=== PATIENT | female | born 1970 | race Caucasian/White ===

== ENCOUNTER 2019-09-19 15:17 | Emergency (ER) | payer SELFPAY ==
[~2019-09-19] VITALS: Ht 160 cm; Wt 86.2 kg
[~2019-09-19 15:17] MED LIST: AMIT25; AMIT50 PO; AMOX500 PO; ASPI325EC; BENZ100A PO; CEPH500 PO; CLIN300 PO; CRUTCH3 USE; CYCL10 PO; DULO30; DULO60 PO; GABA100 PO; HYDACE5 PO; HYDACE5325; HYDACE5325 PO; HYDACE7.5 PO; NAPR375 PO; NAPR500 PO; NAPR550 PO; OMEP20ER; OTC COLD MEDS; OXYACE5T PO; PENVK500 PO; PROM25 PO; QUIN200; RANI150 PO; RXCYCL10 PO; RXHYD5325 PO; RXHYDACE PO; RXNAPNA550 PO; RXOXYACE PO; RXPROM25 PO; RXTRAM50 PO; SULTRIDS PO; TERB250 PO; TOPI50 PO; TRAM50 PO; ZOLM5 PO
== END 2019-09-19 18:09 | disposition home or self-care (01) ==
LOC: ER 15:17
DX: M76.32 Iliotibial band syndrome, left leg (principal); F17.210 Nicotine dependence, cigarettes, uncomplicated
CPT/HCPCS: 29505; 73562-LT; 99283-25

== ENCOUNTER 2021-03-20 18:37 | Emergency (ER) | payer OTHER | END 2021-03-20 19:26 | disposition left against medical advice (07) | LOC: ER 18:37 | DX: Z53.21 Procedure and treatment not carried out due to patient leaving prior to being seen by health care provider (principal) ==

== ENCOUNTER 2021-08-18 22:36 | Emergency (ER) | payer OTHER ==
[~2021-08-18] VITALS: Ht 157.5 cm; Wt 83.0 kg
== END 2021-08-19 00:27 | disposition home or self-care (01) ==
LOC: ER 22:36
DX: T20.13XA Burn of first degree of chin, initial encounter (principal); T20.16XA Burn of first degree of forehead and cheek, initial encounter; T20.17XA Burn of first degree of neck, initial encounter; T21.11XA Burn of first degree of chest wall, initial encounter; F17.200 Nicotine dependence, unspecified, uncomplicated; B19.20 Unspecified viral hepatitis C without hepatic coma; F32.A Depression, unspecified; X12.XXXA Contact with other hot fluids, initial encounter; Y92.9 Unspecified place or not applicable
CPT/HCPCS: 99283